=== PATIENT | female | born 1925 | race Caucasian/White ===

== ENCOUNTER 2017-02-02 20:40 | Emergency (ER) | payer OTHER, MEDICARE ==
[~2017-02-02] VITALS: Ht 152.4 cm; Wt 53.0 kg
[~2017-02-02 20:40] MED LIST: ACYCLOVIR400 MG PO; ASPIRIN325 MG PO; ASPIRIN81 M2 PO; B-121000 MC2 PO; B-COMPLEX-VITA1 EACH PO; BENADRYL25 MG PO; CIPRO500 MG PO; COQ-10100 MG PO; COUMADIN1 MG PO; COZAAR100 MG PO; CRESTOR10 MG PO; CYANOCOBAL1000 MCG/2 IM; DECADRON1 MG PO; DECADRON4 MG PO; DEPADE50 MG PO; DEXAMETHASONE4 MG PO; DOCUSATE SODIU100 MG PO; ERGOCALCIF50000 UNIT PO; ERYTHROMYC1 APPLICAT BOTH EYES; ERYTHROMYC1 APPLICAT RIGHT EYE; ERYTHROMYCIN O3.5 GM RIGHT EYE; FERROUS SULFAT324 M1 PO; FLAGYL500 MG PO; FOSAMAX70 MG PO; GUAIFENESIN WI120 M1 PO; HYDROCHLOROTHIA25 MG PO; LITE COAT ASPI325 M1 PO; LOPRESSOR25 MG PO; LORATADINE10 M2 PO; LOSARTAN POTAS100 MG PO; LYRICA100 MG PO; LYRICA50 MG PO; LYRICA75 MG PO; METRONIDAZOLE500 MG PO; MILK OF MAGN PO; NALTREXONE HCL50 MG PO; NEURONTIN100 MG PO; OMEPRAZOLE20 MG PO; ONDANSETRON4 MG/2 ML IV; OXYCODONE HCL5 MG PO; PANTOPRAZOLE SO40 MG PO; POLYETHYLENE GL17 GM PO; PRILOSEC20 MG PO; REVLIMID10 MG PO; REVLIMID25 MG PO; ST. JOSEPH ASPI81 MG PO; THERAGRAN1 TABLET PO; TRAMADOL HCL50 MG PO; TYLENOL REGULA325 MG PO; ULTRAM50 MG PO; VITAMIN D250000 UNIT PO; ZOFRAN4 MG PO
[2017-02-02 21:47] LABS: HEMATOCRIT 30.4 % (36.0-46.0); MCH 31.6 PG (29.0-34.0); MCHC 31.9 G/DL (30.0-36.0); MEAN PLAT.VOLUME 10.7 uM^3 (9.5-12.4); RBC DIS.WIDTH-CV 17.1 % (11.8-14.6); RBC DIS.WIDTH-SD 61.7 % (39-53); RED BLOOD COUNT 3.07 M/uL (3.80-5.20); WHITE BLOOD COUNT 6.3 K/uL (4.1-10.2)
[2017-02-02 21:48] LABS: PLATELET COUNT 227 K/uL (156-360)
[2017-02-02 21:57] LABS: CHLORIDE 109 mEq/L (99-109); SODIUM 140 mEq/L (136-147)
[2017-02-02 21:59] LABS: GLUCOSE 107 mg/dL (70-99)
[2017-02-02 22:00] LABS: ANION GAP 11 MEQ/L (2-14)
[2017-02-02 22:01] LABS: TOTAL BILIRUBIN 0.2 mg/dL (0.0-1.0)
[2017-02-02 22:03] LABS: ALKALINE PHOSPHATASE 73 IU/L (3-129); GFR ESTIMATE (CALCULATED) 45 mL/min/
[2017-02-02 22:04] LABS: UREA NITROGEN (BUN) 28 mg/dL (9-23)
[2017-02-02] MEDS ORDERED: ATIVAN0.5 MG PO (22:32)
[2017-02-03 02:13] VITALS: BP 115/54
== END 2017-02-03 02:15 | disposition home or self-care (01) ==
LOC: EME → EDBD 20:40 → EME 02-03 02:15
PROVIDERS: Emergency Medicine
DX: R25.2 Cramp and spasm (principal); M79.642 Pain in left hand; M79.641 Pain in right hand; I95.9 Hypotension, unspecified; Z88.0 Allergy status to penicillin; Z88.8 Allergy status to other drugs, medicaments and biological substances; Z85.3 Personal history of malignant neoplasm of breast; M81.0 Age-related osteoporosis without current pathological fracture; Z87.891 Personal history of nicotine dependence; Z90.13 Acquired absence of bilateral breasts and nipples; E78.5 Hyperlipidemia, unspecified; I10 Essential (primary) hypertension
CPT/HCPCS: 80053; 82330; 84100; 85027; 99281; 99285; J1720; J2060; J7030